=== PATIENT | male | born 1990 | race Caucasian/White ===

== ENCOUNTER 2023-10-19 15:25 | Emergency (ER) | payer BC, SELFPAY ==
[2023-10-19 15:27] VITALS: BP 152/99
--- NOTE | 2023-10-19 15:43 | ED.GENMED ---
History of Present Illness
General
Chief Complaint: Abdominal Symptoms
Time Seen by Provider: 10/19/23 15:43
Travel History
Have you had any contact with someone who has COVID-19?: No
Do you have any symptoms of coronavirus? Fever > 100 degrees, chills, cough, shortness of breath, sore throat, loss of taste or smell, muscle aches, or headache?: No
History of Present Illness
History of Present Illness:
HPI: Patient presents with left-sided abdominal pain associate with constipation. He had been having diarrhea recently and took Pepto-Bismol. He has had esophageal dilatation in the past. He has not had fevers. He did vomit upon arrival here.
EXAM:
GENERAL: Well appearing in no distress
HEENT: Moist oral mucosa
CARDIOVASCULAR: No murmurs, normal heart rate and rhythm, No chest wall tenderness
PULMONARY: No respiratory distress, breath sounds are clear and equal
ABDOMEN: Soft with no peritoneal signs, very minimal left-sided abdominal tenderness, elevated BMI
NEUROLOGIC: Excellent strength all extremities, no coordination deficits
PSYCHIATRIC: Appropriate mental status, normal insight and judgement
EXTREMITIES: Nontender, no edema, moves all extremities equally
SKIN: No rash, no lesions
ED COURSE:
4 PM: I initially evaluated patient
NUMBER AND COMPLEXITY OF PROBLEMS ADDRESSED AT THE ENCOUNTER
� Chronic conditions affecting care: Esophageal dilatation
� Acute Exacerbation and/or Progression of Chronic Illness: This is an acute problem
� Differential Diagnosis includes: Constipation, diverticulitis, bowel obstruction less likely as patient is not had any abdominal surgeries
AMOUNT AND/OR COMPLEXITY OF DATA TO BE REVIEWED AND ANALYZED
� I performed an independent evaluation of and my interpretation is:
EKG:
CT: I personally viewed CT imaging and agree with radiologist that this is more consistent with enteritis as opposed to bowel obstruction
X-rays:
Laboratory Studies: White count is normal, chemistries unremarkable
Other:
� Review of other/old records: Records show the patient has a history of calcific bursitis of the shoulder in 2021
� Clinical information was obtained by an independent historian: Spoke to the father at bedside
� Prescriptions/Medications Considered but not given:
� Further testing considered but not performed:
RISK OF COMPLICATIONS AND/OR MORBIDITY OR MORTALITY OF PATIENT MANAGEMENT
� Social determinants of health affecting care: Lives at home
� Discussion with other providers:
� Escalation of care including admission/observation vs risk of discharge considered: The patient was given IV fluids. Labs are unremarkable and CT suggest enteritis. Although the radiologist also mention the possibility of
bowel obstruction the patient has never had any surgeries in the past. He has been very comfortable in appearance. Also recommended MiraLAX for constipation. I also recommended he follows up with his GI doctor.
Past History
Past History
ED Past Medical History: GERD
ED Past Surgical History: Other (EGD/dilation, MTs)
Social History
Tobacco: Non-smoker
Phy Exam
Physical Exam
Physical Exam:
See HPI
Course
Orders/Labs/Results
Orders:
Orders
10/19/23 16:14
CT Abd/pelvis W Iv Cont Urgent
Comment:
Reason For Exam: L>R pain
10/19/23 16:16
0.9% Sodium Chloride 1000 ml [Nss] 1,000 ml IV BOLUS
10/19/23 16:23
Complete Blood Count/With Diff Urgent
Comprehensive Metabolic Panel Urgent
Lipase Urgent
10/19/23 18:40
Ketorolac [Toradol] 15 mg IV NOW STA
Abnormal Lab Results
10/19/23
16:23
Absolute Lymphs (auto) 0.9 L 10^3/uL
(1.2-3.4)
Absolute Monos (auto) 0.7 H 10^3/uL
(0.1-0.6)
Neutrophils % 77.4 H %
(42.2-75.2)
Lymphocytes % 12.0 L %
(20.5-51.1)
Monocytes % 9.9 H %
(1.7-9.3)
Sodium 134 L mmol/L
(135-145)
Glucose 117 H mg/dl
(70-99)
10/19/23 16:23
10/19/23 16:23
Vital Signs
Initial and Last Documented VS:
Initial Vital Signs
Temp Pulse Resp BP Pulse Ox
99.8 F 104 18 152/99 96
10/19/23 15:27 10/19/23 15:27 10/19/23 15:27 10/19/23 15:27 10/19/23 15:27
Last Documented Vital Signs
Temp Pulse Resp BP Pulse Ox
99.8 F 92 20 140/93 94
10/19/23 15:27 10/19/23 18:43 10/19/23 18:43 10/19/23 18:43 10/19/23 18:43
*Critical Care Note
Total Time (30-74mins, 75-104mins- exclusive of procedures): Not Applicable
ED Attending Note
-
Portions of this chart may have been created with voice recognition software.� Occasional wrong word or��sound alike� substitutions may have occurred due to the inherent limitations of voice recognition software.
Discharge Plan
Departure
Patient Disposition: Home (Routine Discharge)
Date of Disposition: 10/19/23
Time of Disposition: 18:39
Patient with high blood pressure during this ER visit?: Yes
Discharge Problem:
Abdominal pain
Instructions: Abdominal Pain, BLOOD PRESSURE
Prescriptions:
No Action
oxycodone-acetaminophen 5 MG/325 MG tablet
1 tab PO Q4HPRN PRN (Reason: pain) Qty: 6 0RF
prednisone 50 MG tablet
50 mg PO DAILY Qty: 5 0RF
Referrals:
Francois Lopes MD [Family Provider] -
Activity Restrictions/Additional Instructions:
Your blood work is normal. The CAT scan suggests enteritis. I recommend that you not eat anything more tonight other than maybe some Jell-O or some other clear liquids. We did rehydrate you with IV fluids. I recommend that you follow-up with
your GI doctor if symptoms persist or you could return here if worse. Since you do have a sensation of constipation, I also recommend he try [id number] MiraLAX.
Interventions
Interventions:
*Risk Screen - Suicide Last Done: 10/19/23 15:27
*General Assessment Last Done: 10/19/23 15:27
*Neglect/Abuse Screening Last Done: 10/19/23 15:27
ED- Fall Risk Assessment Last Done: 10/19/23 16:18
*ED COVID-19 Vaccine History Last Done: 10/19/23 15:27
*Nursing Disposition Last Done: 10/19/23 18:48
[facility]-Gkvtoypkm[facility] Assessment Last Done: 10/19/23 16:18
Discharge Date and Time
Discharge Date/Time: 10/19/23 18:49
[2023-10-19] MEDS: NSS 1000 IV (16:23)
[2023-10-19 16:29] LABS: % Basophils 0.1 % (0-2); % Eosinophils 0.3 % (0-6); % Immature Granulocytes 0.3 % (0-0.5); % Monocytes 9.9 % (1.7-9.3); % Neutrophils 77.4 % (42.2-75.2); Absolute Lymphocytes 0.9 10^3/uL (1.2-3.4); Absolute Monocytes 0.7 10^3/uL (0.1-0.6); Absolute Neutrophils 5.6 10^3/uL (1.4-6.5); Hemoglobin 17.3 g/dL (13.0-18.0); Mean Corpuscular Hgb 30.3 pg (27.0-31.0); Mean Corpuscular Volume 84.1 fL (80.0-94.0); Mean Platelet Volume 10.2 fL (7.4-10.4); Nucleated Red Blood Cells % 0 % (-); Platelet Count 245 10^3/uL (130-400); Red Blood Cell Count 5.71 10^6/uL (4.70-6.10); Red Cell Dist. Width 13.3 % (11.5-14.5); White Blood Cell Count 7.3 10^3/uL (4.8-10.8)
[2023-10-19 16:42] LABS: ALT (SGPT) 44 U/L (0-50); AST (SGOT) 36 U/L (17-59); Albumin 4.3 g/dl (3.5-5.0); Alkaline Phosphatase 61 U/L (38-126); Blood Urea Nitrogen 11 mg/dl (9-20); Calcium 8.9 mg/dl (8.4-10.2); Carbon Dioxide 27 mmol/L (22-30); Chloride 99 mmol/L (98-107); Glucose 117 mg/dl (70-99); Lipase 30 U/L (23-300); Sodium 134 mmol/L (135-145); Total Protein 7.8 g/dl (6.3-8.2); eGFR > 60.00
[2023-10-19 18:43] VITALS: BP 140/93
[2023-10-19] MEDS: TORADOL 15 MG IV (18:45)
== END 2023-10-19 18:49 | disposition home or self-care (01) ==
LOC: EMR 15:25
PROVIDERS: EMERGENCY PHYSICIAN Emergency Medicine; FAMILY PHYSICIAN Internal Medicine
DX: R10.9 Unspecified abdominal pain (principal); K59.00 Constipation, unspecified; K21.9 Gastro-esophageal reflux disease without esophagitis
CPT/HCPCS: 99284; 96374; 96361; 74177; 80053; 83690; 85025; Q9967